=== PATIENT | male | born 1955 | race Caucasian/White ===

== ENCOUNTER 2017-10-17 18:14 | Emergency (ER) | payer MEDICARE ==
[~2017-10-17] VITALS: Ht 182.9 cm; Wt 161.5 kg
[2017-10-17] MEDS ORDERED: IV NORMAL SALINE 1000ML BAG 1,000 ML IV SCH (18:25)
--- NOTE | 2017-10-17 18:33 | PHYS DOC ---
Adult General Chief Complaint Chief Complaint: SHORTNESS OF BREATH HPI HPI Patient is a 62 year old male who presents with complaint shortness of breath. Patient states that his symptoms started worsening today, however patient does note that he has been having coughing over the past 2-3 days. Patient states that he's been coughing up dark yellow sputum. Patient found to have a temperature of 102F at triage. Patient has history of COPD and history of CHF. Patient states that he has also had history of pneumonia requiring hospitalization in the past. Patient states that he has been admitted at [facility] within the past 90 days but is unable to provide details as to why he was admitted. Patient is somewhat of a poor historian. The patient was found by EMS to have a room air saturation of 79 and was started on 5 L nasal cannula prior to arrival. Patient is noted to not be on home oxygen at baseline. Patient denies any chest or abdominal pain. Patient is complaining of mild chronic low back pain at this time. Review of Systems Review of Systems Constitutional: Fever, chills [] Eyes: Denies change in visual acuity, redness, or eye pain [] HENT: Denies nasal congestion or sore throat [] Respiratory: Productive cough, shortness of breath[] Cardiovascular: Denies chest pain[] GI: Denies abdominal pain, nausea, vomiting, bloody stools or diarrhea [] : Denies dysuria or hematuria [] Musculoskeletal: Denies back pain or joint pain [] Integument: Denies rash or skin lesions [] Neurologic: Denies headache, focal weakness or sensory changes [] All other systems were reviewed and found to be within normal limits, except as documented in this note. Current Medications Current Medications Current Medications Medications (Trade) Dose Ordered Sig/Tereza Start Time Stop Time Status Last Admin Dose Admin Piperacillin Sod/ Tazobactam Sod (Zosyn Per Pharmacy) 1 each PRN DAILY PRN 10/17/17 20:00 UNV Piperacillin Sod/ Tazobactam Sod (Zosyn) 3.375 gm 1X ONCE 10/17/17 20:15 10/17/17 20:16 DC 10/17/17 20:14 3.375 GM Sodium Chloride 1,000 ml @ 125 mls/hr Q8H 10/17/17 18:25 10/18/17 02:24 10/17/17 19:08 125 MLS/HR Vancomycin HCl (Vanco Per Pharmacy) 1 each PRN DAILY PRN 10/17/17 20:00 UNV Vancomycin HCl 2 gm/Dextrose/ Sodium Chloride 500 ml @ 250 mls/hr 1X ONCE 10/17/17 20:15 10/17/17 22:14 Allergies Allergies Allergies Coded Allergies Type Severity Reaction Last Updated Verified Sulfa (Sulfonamide Antibiotics) Allergy Intermediate 10/17/17 Yes azithromycin Allergy Intermediate 10/17/17 Yes clarithromycin Allergy Intermediate 10/17/17 Yes clindamycin Allergy Intermediate 10/17/17 Yes cyclobenzaprine Allergy Intermediate 10/17/17 Yes diazepam Allergy Intermediate 10/17/17 Yes dicyclomine Allergy Intermediate 10/17/17 Yes doxycycline Allergy Intermediate 10/17/17 Yes duloxetine Allergy Intermediate 10/17/17 Yes erythromycin base Allergy Intermediate 10/17/17 Yes gabapentin Allergy Intermediate 10/17/17 Yes ketorolac Allergy Intermediate 10/17/17 Yes levofloxacin Allergy Intermediate 10/17/17 Yes metformin Allergy Intermediate 10/17/17 Yes terbinafine Allergy Intermediate 10/17/17 Yes trazodone Allergy Intermediate 10/17/17 Yes tromethamine Allergy Intermediate 10/17/17 Yes venlafaxine Allergy Intermediate 10/17/17 Yes Physical Exam Physical Exam Constitutional: Alert, febrile, appears ill. [] HENT: Normocephalic, atraumatic, bilateral external ears normal, oropharynx moist, no oral exudates, nose normal. [] Eyes: PERRLA, EOMI, conjunctiva normal, no discharge. [] Neck: Normal range of motion, no tenderness, supple, no stridor. [] Cardiovascular:Heart rate regular rhythm, no murmur [] Lungs & Thorax: Moderately restricted air movement bilaterally, faint extremity wheezes, rales bilaterally[] Abdomen: Bowel sounds normal, soft, no tenderness, no masses, no pulsatile masses. [] Skin: Warm, dry, no erythema, no rash. [] Back: No tenderness, no CVA tenderness. [] Extremities: No tenderness, no cyanosis, no clubbing, ROM intact, 1+ pitting edema in the bilateral lower extremities. [] Neurologic: Alert and oriented X 3, normal motor function, normal sensory function, no focal deficits noted. [] Current Patient Data Vital Signs Vital Signs Date Time Temp Pulse Resp B/P (MAP) Pulse Ox O2 Delivery O2 Flow Rate FiO2 10/17/17 19:31 78 18 155/74 (101) 94 Nasal Cannula 4.0 10/17/17 18:31 102.7 102.7 Lab Values Laboratory Tests Test 10/17/17 18:27 10/17/17 18:30 Influenza Type A Antigen Negative (NEGATIVE) Influenza Type B Antigen Negative (NEGATIVE) White Blood Count 18.3 x10^3/uL (4.0-11.0) H Red Blood Count 4.58 x10^6/uL (4.30-5.70) Hemoglobin 13.2 g/dL (13.0-17.5) Hematocrit 40.9 % (39.0-53.0) Mean Corpuscular Volume 89 fL (79-100) Mean Corpuscular Hemoglobin 29 pg (25-35) Mean Corpuscular Hemoglobin Concent 32 g/dL (31-37) Red Cell Distribution Width 14.6 % (11.5-14.5) H Platelet Count 201 x10^3/uL (140-400) Neutrophils (%) (Auto) 77 % (31-73) H Lymphocytes (%) (Auto) 11 % (24-48) L Monocytes (%) (Auto) 7 % (0-9) Eosinophils (%) (Auto) 5 % (0-3) H Basophils (%) (Auto) 1 % (0-3) Neutrophils # (Auto) 14.1 x10^3uL (1.8-7.7) H Lymphocytes # (Auto) 2.0 x10^3/uL (1.0-4.8) Monocytes # (Auto) 1.2 x10^3/uL (0.0-1.1) H Eosinophils # (Auto) 0.9 x10^3/uL (0.0-0.7) H Basophils # (Auto) 0.1 x10^3/uL (0.0-0.2) Segmented Neutrophils % 72 % (35-66) H Band Neutrophils % 1 % (0-9) Lymphocytes % 15 % (24-48) L Monocytes % 3 % (0-10) Eosinophils % 9 % (0-5) H Platelet Estimate Adequate (ADEQUATE) Large Platelets Occ Stomatocytes Occ Schistocytes Occ Sodium Level 131 mmol/L (136-145) L Potassium Level 4.2 mmol/L (3.5-5.1) Chloride Level 95 mmol/L (98-107) L Carbon Dioxide Level 29 mmol/L (21-32) Anion Gap 7 (6-14) Blood Urea Nitrogen 11 mg/dL (8-26) Creatinine 1.2 mg/dL (0.7-1.3) Estimated GFR (Cockcroft-Gault) 61.8 BUN/Creatinine Ratio 9 (6-20) Glucose Level 95 mg/dL (70-99) Lactic Acid Level 1.1 mmol/L (0.4-2.0) Calcium Level 8.7 mg/dL (8.5-10.1) Total Bilirubin 0.8 mg/dL (0.2-1.0) Aspartate Amino Transferase (AST) 20 U/L (15-37) Alanine Aminotransferase (ALT) 24 U/L (16-63) Alkaline Phosphatase 47 U/L (46-116) Creatine Kinase 216 U/L (39-308) Creatine Kinase MB (Mass) 0.5 ng/mL (0.0-3.6) Creatine Kinase MB Relative Index 0.2 % (0-4) Troponin I Quantitative < 0.017 ng/mL (0.000-0.055) FW-Vxu-[id number]-Type Natriuretic Peptide 253 pg/mL (0-124) H Total Protein 7.3 g/dL (6.4-8.2) Albumin 3.5 g/dL (3.4-5.0) Albumin/Globulin Ratio 0.9 (1.0-1.7) L Laboratory Tests 10/17/17 18:30 Laboratory Tests 10/17/17 18:30 EKG EKG Interpreted by me: Heart rate 78, sinus rhythm, normal intervals, normal axis, no acute ST/T-wave abnormalities present[] Radiology/Procedures Radiology/Procedures One view AP chest x-ray interpreted by me: Right lower lobe consolidation, cardiomegaly, no effusions[] Course & Med Decision Making Course & Med Decision Making Pertinent Labs and Imaging studies reviewed. (See chart for details) The patient's emergency department workup is consistent with healthcare associated pneumonia. The patient lists several allergies to antibiotics including Levaquin and doxycycline. The patient was started on IV Zosyn and vancomycin in the emergency department. The patient family voiced preference to be transferred to [facility] as this is where the patient normally gets his care. Per patient's preference, I contacted [facility] and spoke with Dr. Sánchez. She accepted care patient for transfer. The patient will be transferred by ground ambulance. Dragon Disclaimer Dragon Disclaimer This electronic medical record was generated, in whole or in part, using a voice recognition dictation system. Departure Departure Impression: Primary Impression: Healthcare-associated pneumonia Additional Impression: Hypoxia Disposition: 02 TRANSFER [facility] Condition: STABLE Referrals: MINNIE BACH (PCP) Problem Qualifiers DAVID MENDES MD Oct 17, 2017 18:33
[2017-10-17 18:40] LABS: BASO # 0.1 x10^3/uL (0.0-0.2); BASO % 1 % (0-3); EOS % 5 % (0-3); HEMATOCRIT 40.9 % (39.0-53.0); HEMOGLOBIN 13.2 g/dL (13.0-17.5); LYMPH % 11 % (24-48); MEAN CORPUSCULAR HEMOGLOBIN 29 pg (25-35); MEAN CORPUSCULAR HGB CONC 32 g/dL (31-37); MEAN CORPUSCULAR VOLUME 89 fL (79-100); MONO % 7 % (0-9); NEUT % 77 % (31-73); PLATELET COUNT 201 x10^3/uL (140-400); RED BLOOD COUNT 4.58 x10^6/uL (4.30-5.70); RED CELL DISTRIBUTION WIDTH 14.6 % (11.5-14.5); WHITE BLOOD COUNT 18.3 x10^3/uL (4.0-11.0)
[2017-10-17 18:51] LABS: OBC FLU VALID
[2017-10-17 18:52] LABS: CALCIUM 8.7 mg/dL (8.5-10.1); CREATININE 1.2 mg/dL (0.7-1.3); GFR 61.8; POTASSIUM 4.2 mmol/L (3.5-5.1)
[2017-10-17 18:58] LABS: ALBUMIN 3.5 g/dL (3.4-5.0); ALBUMIN/GLOBULIN RATIO 0.9 (1.0-1.7); TOTAL BILIRUBIN 0.8 mg/dL (0.2-1.0); TOTAL PROTEIN 7.3 g/dL (6.4-8.2)
[2017-10-17 19:06] LABS: CKMB MASS 0.5 ng/mL (0.0-3.6)
[2017-10-17 19:18] LABS: % EOS 9 % (0-5)
[2017-10-17 19:19] LABS: PLT ESTIMATE ADEQUATE (ADEQUATE)
[2017-10-17 19:20] LABS: SCHISTOCYTES OCC; STOMATOCYTES OCC
[2017-10-17] MEDS ORDERED: VANCOMYCIN PER PHARMACY MC PRN (20:00)
[2017-10-17] MEDS ORDERED: PIP/TAZO PER PHARMACY MC PRN (20:00)
[2017-10-17] MEDS ORDERED: VANCOMYCIN 2 GM in IV DEXTROSE 5 %-0.45 % NACL 500 ML IV ONE (20:15)
[2017-10-17] MEDS ORDERED: PIPERACILLIN/TAZO IV Push 3.375 GM VIAL. IVP ONE (20:15)
[2017-10-17 21:31] VITALS: BP 144/65
[2017-10-18] MEDS ORDERED: PIPERACILLIN/TAZO IV Push 3.375 GM VIAL. IVP SCH (01:00)
--- NOTE | 2017-10-18 07:08 | EKG ---
[facility] [address] [place] [address] Test Date: 2017-10-17 Test Time: 18:22:31 Pat Name: FRANCO BREAUX Department: Room: Gender: M Skein Spooler: : 1955 Requested By: DAVID MENDES Order Number: [id number] Reading MD: Measurements Intervals Kathleen Rate: 78 P: 29 [place]: 154 QRS: 38 QRSD: 80 T: 22 QT: 376 QTc: 432 Interpretive Statements SINUS RHYTHM NO SPECIFIC ECG ABNORMALITIES RI6.01 No previous ECG available for comparison
[2017-10-18] MEDS ORDERED: VANCOMYCIN 2 GM in IV DEXTROSE 5 %-0.45 % NACL 500 ML IV SCH (08:30)
--- NOTE | 2017-10-18 09:22 | RAD ---
AP chest. History: Cough and fever, short of breath AP view was taken of the chest. There is a consolidating infiltrate in the lateral right middle lobe. PA and lateral views of the of benefit for further evaluation. Heart is normal in size. There is no effusion. Impression: 1. Right middle lobe infiltrate.
== END 2017-10-17 21:52 | disposition short-term general hospital (02) ==
LOC: ER 18:14
DX: J18.9 Pneumonia, unspecified organism (principal); R09.02 Hypoxemia; M54.5 Low back pain; J44.9 Chronic obstructive pulmonary disease, unspecified; I50.9 Heart failure, unspecified; G89.29 Other chronic pain; Y95 Nosocomial condition; Z88.2 Allergy status to sulfonamides; Z88.1 Allergy status to other antibiotic agents; Z88.5 Allergy status to narcotic agent; Z88.8 Allergy status to other drugs, medicaments and biological substances
CPT/HCPCS: 36415; 71010; 80053; 82553; 83605; 83880; 84484; 85007; 85025; 87040; 87804; 93005; 96361; 96365; 96375; 99285; J2543; J3370; J7030